=== PATIENT | female | born 1955 | race Caucasian/White ===

== ENCOUNTER 2016-05-16 13:01 | Outpatient (CLI) ==
[2015-08-27 19:38] VITALS: BMI 23.4
[2016-05-16 13:22] VITALS: BP 103/66; TEMP 100.9
[2016-05-16] MEDS ORDERED: INFUVITE ADULT 10 ML in D5%-NS-KCL 20 MEQ/L IV SOL 1,000 ML IV SCH (13:30)
[2016-05-16 14:09] LABS: FLU INTERNAL QC INTERNAL QC VALID; RAPID FLU A POSITIVE (NEGATIVE); RAPID FLU B NEGATIVE (NEGATIVE)
== END 2016-05-16 13:02 | disposition home or self-care (01) ==
LOC: LAB 13:01
PROVIDERS: ATTEND General Practice
DX: R50.9 Fever, unspecified (principal); R05 Cough; R52 Pain, unspecified; J09.X2 Influenza due to identified novel influenza A virus with other respiratory manifestations
CPT/HCPCS: 87651; 87804; 87880; 96360; 96361

== ENCOUNTER 2016-05-22 11:38 | Outpatient (CLI) ==
[2015-08-27 19:38] VITALS: BMI 23.4
[2016-05-22 12:36] LABS: BASOPHILS % (AUTO) 0.5 % (0.0-3.0); EOSINOPHILS # (AUTO) 0.1 K/ul (0.0-0.7); EOSINOPHILS % (AUTO) 0.6 % (0.0-7.0); HEMATOCRIT 33.6 % (37.0-47.0); IMMATURE GRANULOCYTE % (AUTO) 2.3 % (0.0-5.0); LYMPHOCYTES # (AUTO) 1.4 K/uL (0.60-3.4); LYMPHOCYTES % (AUTO) 17.6 (10.0-50.0); MEAN CORPUSCULAR HEMOGLOBIN 27.8 pg (27.0-31.0); MEAN CORPUSCULAR HGB CONC 32.7 (31.8-35.4); MEAN CORPUSCULAR VOLUME 84.8 fl (81.0-99.0); MONOCYTES # (AUTO) 0.7 K/uL (0.4-2.0); MONOCYTES % (AUTO) 9.4 (0-10); NEUTROPHILS # (AUTO) 5.5 K/ul (2.0-6.9); NEUTROPHILS % (AUTO) 69.6; PLATELET COUNT 353 10^3/uL (140-440); RED BLOOD COUNT 3.96 10^6/ul (4.20-5.40); WHITE BLOOD COUNT 7.86 K/ul (4.6-10.2)
[2016-05-22 12:48] LABS: BILIRUBIN,URINE Negative (NEGATIVE); KETONES,URINE Negative (NEGATIVE); LEUKOCYTE ESTERASE ,URINE Negative (NEGATIVE); NITRITE,URINE Negative (NEGATIVE); PROTEIN,URINE Negative (NEGATIVE); URINE, BLOOD Negative (NEGATIVE)
[2016-05-22 12:50] LABS: ADD URINE MICROSCOPIC NO
[2016-05-22 13:38] LABS: ALBUMIN 3.4 g/dL (3.4-5.0); ALBUMIN/GLOBULIN RATIO 1.06; ANION GAP 12.2; BILIRUBIN,TOTAL 0.15 mg/dL (0.00-1.20); BUN/CREATININE RATIO 17.18; CALCIUM 8.8 mg/dL (8.2-10.2); CHOL/HDL RATIO 3.3 (4.5-5.5); CREATININE 0.64 mg/dL (0.60-1.30); POTASSIUM 4.2 mmol/L (3.5-5.10); TOTAL PROTEIN 6.6 g/dL (5.8-8.1)
== END 2016-05-22 11:39 | disposition home or self-care (01) ==
LOC: LAB 11:38
PROVIDERS: ATTEND General Practice
DX: E78.5 Hyperlipidemia, unspecified (principal); I10 Essential (primary) hypertension; E87.1 Hypo-osmolality and hyponatremia; G50.0 Trigeminal neuralgia; E03.9 Hypothyroidism, unspecified; K76.0 Fatty (change of) liver, not elsewhere classified; Z79.899 Other long term (current) drug therapy; E66.9 Obesity, unspecified
CPT/HCPCS: 36415; 80053; 80061; 81001; 84443; 85025

== ENCOUNTER 2016-09-13 13:49 | Outpatient (CLI) | payer OTHER ==
[2015-08-27 19:38] VITALS: BMI 23.4
[2016-09-13 14:18] LABS: BASOPHILS % (AUTO) 0.4 % (0.0-3.0); EOSINOPHILS % (AUTO) 0.4 % (0.0-7.0); HEMATOCRIT 39.3 % (37.0-47.0); HEMOGLOBIN 13.9 g/dl (12.0-16.0); IMMATURE GRANULOCYTE % (AUTO) 0.4 % (0.0-5.0); LYMPHOCYTES # (AUTO) 1.3 K/uL (0.60-3.4); LYMPHOCYTES % (AUTO) 27.2 (10.0-50.0); MEAN CORPUSCULAR HEMOGLOBIN 31.8 pg (27.0-31.0); MEAN CORPUSCULAR HGB CONC 35.4 (31.8-35.4); MEAN CORPUSCULAR VOLUME 89.9 fl (81.0-99.0); MONOCYTES # (AUTO) 0.4 K/uL (0.4-2.0); MONOCYTES % (AUTO) 9.3 (0-10); NEUTROPHILS # (AUTO) 2.9 K/ul (2.0-6.9); NEUTROPHILS % (AUTO) 62.3; PLATELET COUNT 228 10^3/uL (140-440); RED BLOOD COUNT 4.37 10^6/ul (4.20-5.40); WHITE BLOOD COUNT 4.64 K/ul (4.6-10.2)
[2016-09-13 14:20] LABS: BILIRUBIN,URINE Negative (NEGATIVE); KETONES,URINE Negative (NEGATIVE); LEUKOCYTE ESTERASE ,URINE Negative (NEGATIVE); NITRITE,URINE Negative (NEGATIVE); PH,URINE 7.5 (5-9); PROTEIN,URINE Negative (NEGATIVE); URINE, BLOOD Negative (NEGATIVE)
[2016-09-13 14:25] LABS: ADD URINE MICROSCOPIC NO
[2016-09-13 14:48] LABS: ALBUMIN 4.1 g/dL (3.4-5.0); ALBUMIN/GLOBULIN RATIO 1.52; ANION GAP 10.4; BILIRUBIN,TOTAL 0.22 mg/dL (0.00-1.20); BUN/CREATININE RATIO 9.09; CHOL/HDL RATIO 2.5 (4.5-5.5); CREATININE 0.77 mg/dL (0.60-1.30); POTASSIUM 4.4 mmol/L (3.5-5.10); TOTAL PROTEIN 6.8 g/dL (5.8-8.1)
== END 2016-09-13 13:50 | disposition home or self-care (01) ==
LOC: LAB 13:49
PROVIDERS: ATTEND General Practice
DX: E78.5 Hyperlipidemia, unspecified (principal); E87.1 Hypo-osmolality and hyponatremia; E03.9 Hypothyroidism, unspecified; I10 Essential (primary) hypertension
CPT/HCPCS: 36415; 80053; 80061; 81001; 85025

== ENCOUNTER 2017-08-16 09:35 | Outpatient (CLI) | payer OTHER ==
[2015-08-27 19:38] VITALS: BMI 23.4
--- NOTE | 2017-08-17 10:38 | MAMMO ---
EXAM: Digital screening mammogram with tomosynthesis HISTORY: Screening COMPARISON: 02/18/2016 FINDINGS: Digital MLO and CC views of the right and left breast were performed. Tomosynthesis was p erformed. Computer aided detection was utilized. The breast tissue is heterogeneously dense, which could obscure small masses. There is no evidence for mass, asymmetry, distortion, or suspicious calc ifications in either breast. IMPRESSION: 1. No evidence of malignancy in the right or left breast. 2. Annual screening mammogram is recommended in one year. BIRADS category 1, negative examination
== END 2017-08-16 09:36 | disposition home or self-care (01) ==
LOC: RAD 09:35
PROVIDERS: ATTEND General Practice
DX: Z12.31 Encounter for screening mammogram for malignant neoplasm of breast (principal); E78.5 Hyperlipidemia, unspecified; I10 Essential (primary) hypertension; E03.9 Hypothyroidism, unspecified; E87.1 Hypo-osmolality and hyponatremia
CPT/HCPCS: 36415; 77067; 80053; 80061; 81001; 84443; 85025

== ENCOUNTER 2018-05-29 12:32 | Outpatient (CLI) ==
[2015-08-27 19:38] VITALS: BMI 23.4
--- NOTE | 2018-05-29 15:50 | US ---
EXAM: Thyroid ultrasound History: Thyroid nodules. Comparison: None available. Technique: Multiple sonographic images through the thyroid gland were obtained. Color duplex Dopple r was used to interrogate vascular flow. Findings: The right lobe of the thyroid measures 4.6 cm x 2.1 cm x 2.0 cm and demonstrates a large dominant chanell id nodule containing microcalcifications measuring 3.5 cm x 2.0 cm x 2.6 cm and is highly hypervascul ar. The thyroid isthmus measures 0.2 cm in thickness. The left lobe the thyroid measures 2.9 cm x 0.9 cm x 0.9 cm and is without discrete nodule identified . No extrathyroidal masses are identified. Impression: A large solid hypervascular nodule within the right lobe of the thyroid containing micro calcifications is suspicious for malignancy. Biopsy recommended.
== END 2018-05-29 12:33 | disposition home or self-care (01) ==
LOC: RAD 12:32
PROVIDERS: ATTEND General Practice
DX: D34 Benign neoplasm of thyroid gland (principal)

== ENCOUNTER 2018-08-28 13:00 | Outpatient (CLI) ==
[2015-08-27 19:38] VITALS: BMI 23.4
== END 2018-08-28 13:01 | disposition home or self-care (01) ==
LOC: LAB 13:00
PROVIDERS: ATTEND Otolaryngology
DX: E04.1 Nontoxic single thyroid nodule (principal)
CPT/HCPCS: 36415; 84439; 84443